=== PATIENT | female | born 1980 | race Caucasian/White ===

== ENCOUNTER → 2017-12-26 10:33 | Outpatient (CLI) | payer OTHER, SELFPAY ==
[2017-12-26 11:56] LABS: Estradiol 141.1 pg/mL
[2017-12-26 12:07] LABS: Hemoglobin A1c 5.5 % (4.2-6.3)
[2017-12-28 09:58] LABS: Progesterone Level 4.86 ng/mL (See Comment)
== END ==
PROVIDERS: Family Provider Family Medicine; PCP Family Medicine; Visit Provider Obstetrics & Gynecology
DX: N94.5 Secondary dysmenorrhea (principal); R53.82 Chronic fatigue, unspecified
CPT/HCPCS: 36415; 82670; 83036; 84144; 84403

== ENCOUNTER 2021-09-12 09:43 | Outpatient (CLI) | payer MEDICAID, SELFPAY ==
--- NOTE | 2021-09-12 09:48 | BI_ITS ---
MAMMOGRAPHY - BILATERAL SCREENING REASON FOR EXAM: Female, 41 years old. Routine annual screening examination. PERTINENT HISTORY: Non-contributory. TECHNIQUE: Digital bilateral breast carlos (3D mammographic acquisition) in the CC and MLO projections. 2-D mediolateral oblique (MLO) and craniocaudad (CC) views of both breasts were obtained. CAD: Full Field Digital Mammography with Computer Added Detection was performed. COMPARISON: None. Baseline examination. FINDINGS: Breast Composition: The breasts are heterogeneously dense, which may obscure small masses. There is a 1.8 cm x 2.3 cm irregular nodular density in the upper lateral aspect of the left breast. Correlation with ultrasound is recommended. No other significant abnormalities are identified. BI/SCRN MAMM (CAD)W/CARLOS BILAT IMPRESSION: 1.8 cm x 2.3 cm irregular nodular density in the upper lateral aspect of the left breast correlation with ultrasound is recommended. ASSESSMENT CATEGORY: BIRADS Category 0: Incomplete. Need additional imaging evaluation. A letter regarding these results will be sent to the patient by the facility within 30 days. Approximately 10% of breast cancers are not detected by mammography. A normal mammogram should not delay biopsy of a clinically suspicious abnormality. [id number] Electronically Signed: Franklin Cuadra MD at 11:05 EST , Service support ,
== END 2021-09-12 23:59 | disposition short-term general hospital (02) ==
LOC: OPBI 09:46
PROVIDERS: PCP Family Medicine; Visit Provider Family Medicine
DX: Z12.31 Encounter for screening mammogram for malignant neoplasm of breast (principal)
CPT/HCPCS: 77063; 77067

== ENCOUNTER 2021-09-16 15:28 | Outpatient (CLI) | payer MEDICAID, SELFPAY ==
--- NOTE | 2021-09-16 15:30 | US_ITS ---
STUDY: ULTRASOUND BREAST - LEFT REASON FOR EXAM: Female, 41 years old. Abnormal screening mammogram. TECHNIQUE: Axial and longitudinal images of the LEFT breast were performed with a high resolution ultrasound transducer. # OF IMAGES: 49 COMPARISON: Comparison is made with prior mammogram dated 09/12/2021. FINDINGS: LEFT Breast: The lateral half of the left breast was examined by ultrasound. No sonographic abnormality is seen. The patient will be recalled for additional views of the left breast including compression spot views. US/Breast Limited Unilateral IMPRESSION: Unremarkable sonographic evaluation of the lateral aspect of the left breast. The patient will be recalled for additional images of the left breast including compression spot views. ASSESSMENT CATEGORY: BIRADS Category 0: Incomplete. Need additional imaging evaluation. A letter regarding these results will be sent to the patient by the facility within 30 days. Electronically Signed: Franklin Cuadra MD at 8:34 EST , Service support ,
== END 2021-09-16 23:59 | disposition short-term general hospital (02) ==
LOC: OPUS 15:29
PROVIDERS: PCP Family Medicine; Referring Provider Family Medicine; Visit Provider Family Medicine
DX: N63.20 Unspecified lump in the left breast, unspecified quadrant (principal)
CPT/HCPCS: 76642

== ENCOUNTER 2021-09-24 09:05 | Outpatient (CLI) | payer MEDICAID, SELFPAY ==
--- NOTE | 2021-09-24 09:09 | BI_ITS ---
MAMMOGRAPHY - UNILATERAL DIAGNOSTIC: LEFT BREAST REASON FOR EXAM: Female, 41 years old. Abnormal screening mammogram. PERTINENT HISTORY: Non-contributory. TECHNIQUE: Compression spot views as well as 90 degree lateral and 3-D compression spot views of the left breast were obtained. CAD: Full Field Digital Mammography with Computer Added Detection was performed. COMPARISON: Comparison is made with prior mammogram dated 09/12/2021. FINDINGS: Breast Composition: The breasts are heterogeneously dense, which may obscure small masses. There are no dominant masses or suspicious calcifications. No other significant abnormalities are identified. BI/DIAG MAMM W/CAD, UNILAT IMPRESSION: Stable unilateral diagnostic mammogram. One year follow-up mammogram recommended. (A) ASSESSMENT CATEGORY: BIRADS Category 1: Negative. A letter regarding these results will be sent to the patient by the facility within 30 days. Approximately 10% of breast cancers are not detected by mammography. A normal mammogram should not delay biopsy of a clinically suspicious abnormality. Electronically Signed: Franklin Cuadra MD at 10:12 EST , Service support ,
== END 2021-09-24 23:59 | disposition short-term general hospital (02) ==
LOC: OPBI 09:06
PROVIDERS: PCP Family Medicine; Referring Provider Family Medicine; Visit Provider Family Medicine
DX: R92.8 Other abnormal and inconclusive findings on diagnostic imaging of breast (principal)
CPT/HCPCS: 77061; 77065; G0279

== ENCOUNTER 2021-12-05 18:57 | Observation (INO) | payer MEDICAID, SELFPAY ==
[2021-12-05] VITALS (7 sets, daily range): BP systolic 117–122; BP diastolic 70–81; PULSE 58–73; RESP 16–18; TEMP 36.6–36.8; O2SAT 81–96; BMI 35.4; BMI 35.2
--- NOTE | 2021-12-05 19:13 | EDS_ITS ---
HPI <JOSE Ortiz - Last Filed: 12/05/21 21:51> History of Present Illness Chief Complaint: Back Narrative Narrative: 41-year-old female with history of fibromyalgia, anxiety, depression presents to the emergency department with severe spine pain. Patient states that she has been having back pain has been going on for 2 to 3 weeks, she did see her primary care physician yesterday given Neurontin, prednisone however this is not helping. Patient states the pain is going all the way up her spine down her legs. Patient does arrive by EMS. Patient denies any bowel or bladder incontinence, fever chills, IV drug use. Patient is moving all extremities however it hurts to move her legs as well as to do any rolling or walking. [facility] <JOSE Ortiz - Last Filed: 12/05/21 21:51> [facility] Medical History (Updated 12/05/21 @ 21:40 by JOSE Ortiz) Back pain Fibromyalgia Allergy/AdvReac Type Severity Reaction Status Date / Time acetaminophen [From Vicodin] Allergy PT UNSURE Verified 12/05/21 19:01 OF REACTION hydrocodone [From Vicodin] Allergy PT UNSURE Verified 12/05/21 19:01 OF REACTION loratadine [From Claritin-D] Allergy PT UNSURE Verified 12/05/21 19:01 OF REACTION pseudoephedrine Allergy PT UNSURE Verified 12/05/21 19:01 [From Claritin-D] OF REACTION Social History Smoking Status: Never smoker ROS <JOSE Ortiz - Last Filed: 12/05/21 21:51> ROS ED ROS Narrative Constitutional: Negative for fever, chills, weight loss or gain, weakness Eyes: Negative for vision loss, vision change, double vision ENT: Negative for any hearing changes, ringing in the ears, discharge, pain Nose: Negative for any congestion, runny nose, sinus pain, allergies Throat: Negative for any sore throat, swelling, voice changes, Cardiovascular: Negative for any chest pain, tightness, palpitations, racing heartbeat Respiratory: Negative for any cough, sputum production, hemoptysis, shortness of breath, shortness of breath on exertion, Gastrointestinal: Negative for any abdominal pain, nausea, vomiting, diarrhea, constipation, blood in stool, blood in vomit : Negative for any urinary frequency, incontinence, dysuria, retention, blood in urine Muscle skeletal: Negative for any muscle joint pain arthralgias. Positive for severe back pain that goes down bilateral legs the pain goes up to her neck Neurological: Negative for any headache, dizziness, syncope, numbness or tingling Skin: Negative for any rashes, lumps, itching, abrasions, lacerations Psychiatric: Negative for any depression, anxiety, stress, suicidal ideation, homicidal ideation Hematologic: Negative for any easy bruising, excessive bruising, easy bleeding Allergies: Negative for any eczema, hives, rash EXAM <JOSE Ortiz - Last Filed: 12/05/21 21:51> Physical Exam Narrative Exam Narrative: Patient arrives in moderate amount of pain, patient is screaming with any movement. Const Vital Signs: 12/05/21 18:58 12/05/21 19:17 12/05/21 19:50 Temperature 97.8 F Temperature Source Temporal Pulse Rate 61 58 L Respiratory Rate 18 18 Blood Pressure 118/81 H 121/79 H Blood Pressure Mean 93 93 Pulse Ox 96 93 81 Oxygen Delivery Method Room Air Room Air Room Air Oxygen Flow Rate (L/min) 12/05/21 19:51 12/05/21 21:22 Temperature Temperature Source Pulse Rate 58 L Respiratory Rate 18 Blood Pressure 118/80 Blood Pressure Mean 92 Pulse Ox 95 96 Oxygen Delivery Method Nasal Cannula Nasal Cannula Oxygen Flow Rate (L/min) 2 2 Positive well nourished and well developed General Appearance ED: well developed Eyes PERRL and EOMs intact bilaterally Neck no lymphadenopathy and supple Chest Wall inspection of chest normal and palpation of chest normal Resp normal respiratory effort and clear to auscultation bilaterally Cardio regular rate and regular rhythm GI normal to inspection, nondistended, normoactive bowel sounds, non-tender and non-distended Palpation: soft Back/Spine Back/Spine Narrative: Patient has pain throughout the spinal exam. Patient had pain on palpation to both legs. Patient has +2 pedal pulse. Cervical Spine: cervical spine tenderness Thoracic Spine / Upper Back: thoracic spinal tenderness Lumbar Spine / Lower Back: lumbar spinal tenderness Extremity Extremity Narrative: Patient has tenderness to the bilateral lower extremities, anywhere I would touch on the lower extremity she did have pain General Extremety ED: Yes tenderness Neuro oriented x3 and CN's II-XII intact bilaterally Sensorium / Orientation: alert Motor Exam: strength 5/5 throughout Psych Mood & Affect: anxious Skin no rashes or lesions noted <Dr. Vj Alexis DO - Last Filed: 12/05/21 22:22> Physical Exam Const Vital Signs: 12/05/21 18:58 12/05/21 19:17 12/05/21 19:50 Temperature 97.8 F Temperature Source Temporal Pulse Rate 61 58 L Respiratory Rate 18 18 Blood Pressure 118/81 H 121/79 H Blood Pressure Mean 93 93 Pulse Ox 96 93 81 Oxygen Delivery Method Room Air Room Air Room Air Oxygen Flow Rate (L/min) 12/05/21 19:51 12/05/21 21:22 Temperature Temperature Source Pulse Rate 58 L Respiratory Rate 18 Blood Pressure 118/80 Blood Pressure Mean 92 Pulse Ox 95 96 Oxygen Delivery Method Nasal Cannula Nasal Cannula Oxygen Flow Rate (L/min) 2 2 MDM <JOSE Ortiz - Last Filed: 12/05/21 21:51> [facility] MDM Narrative Medical decision making narrative: Patient arrives in mild to moderate distress secondary to back pain. Patient presents the emerge department for worsening back pain that has been ongoing for greater than 2 weeks however much worse last 48 hours. Patient did receive x-rays of the lumbosacral spine, these were unremarkable. Patient did receive IV Toradol in the squad, IV Dilaudid here with Zofran and IV fluids. Patient states that did help with the back pain slightly. Patient was assisted to sit up, stand, however due to the pain she was screaming, saying that she could not do it and sat back down. Patient will be remedicated with IV pain medicine, Dilaudid 0.5 mg. On reassessment, the patient was again try to ambulate, patient immediately started crying when sitting up, patient was able to take 1 step off the bed, states that she could not hold her own weight and says she cannot walk and sat back in bed. At this time, due to the patient's inability to ambulate, ongoing back pain after 2 doses of Dilaudid, the patient will need to be admitted to the hospital for intractable back pain. Radiography Diagnostic Testing: Clinical Impression(s) from Imaging Studies Lumbar Spine X-Ray 12/05/21 19:25 IMPRESSION: There are no acute findings. Electronically Signed: Holland Perez MD at 19:52 EDT , <Dr. Vj Alexis, DO - Last Filed: 12/05/21 22:22> [facility] MDM Narrative Medical decision making narrative: Patient seen in conjunction with the nurse practitioner. Agree with assessment and plan. Patient presenting with back pain. No direct trauma. No red flag signs or symptoms. No signs of cauda equina syndrome. Patient medicated with Toradol prior to arrival. She is given 2 doses of Dilaudid in the emergency room. X-rays of the lumbar spine on my interpretation show no acute abnormalities. We did tempted to intimately the patient 2 times and she is not able to take more than one step. She does not think she can go home and take care of herself. Discussed with the hospitalist for admission. Impression: 1. Intractable back pain 2. Inability ambulate Lab Data Attestation: I reviewed the patient's lab results. Radiography Diagnostic Testing: Clinical Impression(s) from Imaging Studies Lumbar Spine X-Ray 12/05/21 19:25 IMPRESSION: There are no acute findings. Electronically Signed: Holland Perez MD at 19:52 EDT , Discharge Plan Dx/Rx/DC Orders Clinical Impression: Intractable back pain Disposition Disposition: Acute Care [facility]
[2021-12-05] MEDS: Ondansetron 4 MG/2 ML Vial IV (19:15)
[2021-12-05] MEDS: HYDROmorphone 1 MG/ML Syringe IV (19:15)
[2021-12-05] MEDS: 0.9% Normal Saline 1,000 ML 1000 ML IV (19:15)
--- NOTE | 2021-12-05 19:25 | RAD_ITS ---
STUDY: X-RAY - LUMBAR SPINE REASON FOR EXAM: Female, 41 years old. LOW BACK PAIN lumbar pain TECHNIQUE: XR Spine Lumbar 2 or 3 Views COMPARISON: None FINDINGS: Normal lumbar lordosis. There is no substantial scoliosis. There is a normal alignment of the vertebrae. Normal vertebral bodies and endplates. Normal disc space heights. The soft tissue structures are unremarkable. RAD/Lumbar Spine 2 or 3 Views IMPRESSION: There are no acute findings. Electronically Signed: Holland Perez MD at 19:52 EDT ,
[2021-12-05] MEDS: HYDROmorphone 0.5 MG/0.5 ML SYRINGE IV (20:57)
--- NOTE | 2021-12-05 22:15 | HP.PCM.HOS_ITS ---
[facility] - General General Date of Admission: 12/05/21 HPI Narrative December, is a 41 F with a significant history of depression, anxiety and fibromyalgia who presents to the emergency department with a 2-week history of lower back pain. The pain started gradually. However a day before presentation she rolled over, heard a popping sound and developed excruciating back pain. Also, she associates her pain with falling on ice. The pain radiates to entire lower extremity and into her entire spine, neck and into her shoulders. Standing, sitting, and walking aggravates the pain. She tried some heating pad and pain on treatment without any real relief. She denies any aggravating fac tors to the pain. She described the pain as sharp. She denies bowel and bladder incontinence. The day before presentation she saw her PCP and she was started on prednisone taper. Reportedly attempt was made for patient to walk at the emergency department but she had excruciating pain preventing her from walking. [facility] Medical History Anxiety Back pain Depression Fibromyalgia Home Medications cyclobenzaprine 10 mg PO TID PRN 12/05/21 [History Last Taken 12/04/21] duloxetine [Cymbalta] 30 mg PO DAILY 12/05/21 [History Last Taken 12/05/21] fluoxetine [Prozac] 20 mg PO DAILY 12/05/21 [History Last Taken 12/05/21] gabapentin 300 mg PO TID PRN 12/05/21 [History Last Taken 12/05/21] meloxicam 7.5 mg PO BID 12/05/21 [History Last Taken 12/05/21] prednisone 20 mg PO BID 12/05/21 [History Last Taken 12/05/21] trazodone 50 mg PO QHS 12/05/21 [History Last Taken 12/04/21] Allergy/AdvReac Type Severity Reaction Status Date / Time acetaminophen [From Vicodin] Allergy PT UNSURE Verified 12/05/21 19:01 OF REACTION hydrocodone [From Vicodin] Allergy PT UNSURE Verified 12/05/21 19:01 OF REACTION loratadine [From Claritin-D] Allergy PT UNSURE Verified 12/05/21 19:01 OF REACTION pseudoephedrine Allergy PT UNSURE Verified 12/05/21 19:01 [From Claritin-D] OF REACTION Family History Other Arthritis Fibromyalgia Heart disease Surgical History Hx of appendectomy Social History Smoking Status: Never smoker ROS ROS Narrative Pertinent positives and pertinent negatives as noted in HPI. All other systems were reviewed and are negative. Vital Signs Vital Signs Vital Signs: 12/05/21 18:58 12/05/21 19:17 12/05/21 19:50 Temperature 97.8 F Temperature Source Temporal Pulse Rate 61 58 L Respiratory Rate 18 18 Blood Pressure 118/81 H 121/79 H Blood Pressure Mean 93 93 Pulse Ox 96 93 81 Oxygen Delivery Method Room Air Room Air Room Air Oxygen Flow Rate (L/min) 12/05/21 19:51 12/05/21 21:22 Temperature Temperature Source Pulse Rate 58 L Respiratory Rate 18 Blood Pressure 118/80 Blood Pressure Mean 92 Pulse Ox 95 96 Oxygen Delivery Method Nasal Cannula Nasal Cannula Oxygen Flow Rate (L/min) 2 2 Weight Weight: 90.718 kg Body Mass Index (BMI) 35.4 Physical Exam Narrative Physical exam: General: Well-nourished, well-developed. Head: Normocephalic, atraumatic, no tenderness Eyes: Vision is grossly intact. EOMI ENT, no trauma, moist mucous membranes, no rhinorrhea Neck: Nontender, full range of motion, no spinal tenderness, deformities, step- off CVS: Regular rate and rhythm. S1-S2 present. No murmur, gallop or rub. Respiratory : clear to auscultation bilaterally, chest wall nontender, no wheezi ng Abdomen: Soft, nontender, nondistended, normal bowel sounds, no masses : Deferred Back: Nontender, no CVA tenderness, no midline spinal tenderness, deformities, step-offs Extremities: Tenderness to back at multiple areas including spinous and paraspinal areas. Screams with straight leg raise test bilaterally. Skin: Normal color, no trauma, abrasions Neuro: Alert, oriented, cranial nerves II through XII grossly intact. Psychiatry: Normal mood. Normal affect. Not depressed. Not anxious. Results Radiology Impression Lumbar Spine X-Ray 12/05/21 19:25 IMPRESSION: There are no acute findings. Electronically Signed: Holland Perez MD at 19:52 EDT , Assessment & Plan Assessment/Plan (1) Intractable back pain: PLAN: Intractable low back pain Lumbar spine x-ray was visualized and independently interpreted and agree with radiologist impression of no acute finding. We will continue patient gabapentin and cyclobenzaprine as needed. Prednisone continued. We will start patient on oxycodone. Meloxicam continued. PT and OT to work with patient. DVT prophylaxis: SCD ordered. Charges/Coding Visit Charges OBSV E&M: 22135 Initial observation care L2
[2021-12-05] MEDS: oxyCODONE 5 MG Tablet 10 MG PO (23:19)
[2021-12-05] MEDS: predniSONE 20 MG Tablet PO (23:19)
[2021-12-05] MEDS: cycloBENZAPRine HCl 10 MG Tablet PO (23:19)
[2021-12-06] MEDS: Gabapentin 300 MG Capsule PO ×2 (02:39→10:33)
[2021-12-06] MEDS: oxyCODONE 5 MG Tablet 10 MG PO ×3 (03:21→13:11)
[2021-12-06 03:31] VITALS: BP 113/76; PULSE 61; RESP 16; TEMP 36.6; O2SAT 96
[2021-12-06 06:11] LABS: Absolute Lymphocyte Count 0.93 X10^3/uL (0.83-4.51); Absolute Neutrophil Count 5.1 X10^3/uL (2.0-7.7); Basophil# 0.01 X10^3/uL; Basophil% 0.2 % (0-1); Hematocrit 38.6 % (37-47); Hemoglobin 12.9 g/dL (12.0-15.0); Lymphocyte # 0.93 X10^3/ul (0.83-4.51); Lymphocyte % 14.9 % (19-41); Mean Corp Hgb Conc 33.4 g/dL (32-36); Mean Corpuscular Hgb 29.1 pg (27.0-32.0); Mean Corpuscular Volume 87.1 fL (81-99); Monocyte# 0.22 X10^3/uL; Monocyte% 3.5 % (0-10); NRBC Flagged by Analyzer 0 % (0-5); Neutrophil # 5.08 X10^3/uL (2.7-7.7); Neutrophil % 81.2 % (47-70); Platelet Count 216 K/mm3 (150-450); RBC Distribution Width CV 12.5 % (11.6-14.6); RBC Distribution Width SD 40.4 fl (35.1-43.9); Red Blood Count 4.43 M/mm3 (4.2-5.4); White Blood Count 6.3 K/mm3 (4.4-11.0)
[2021-12-06 06:31] LABS: Anion Gap 4 (5-15); BUN 16 mg/dL (7-18); BUN/Creat Ratio 19.2 RATIO (10-20); Calcium,Total 8.2 mg/dL (8.5-10.1); Chloride 110 mmol/L (98-107); Creatinine, Serum 0.84 mg/dL (0.55-1.02); EST Glomerular Filtration Rate 80 mL/min (>60); Est Glom Filt Rate - Afr Amer 96 mL/min (>60); Estimated Creatinine Clearance 72.91 ml/min; Glucose 114 mg/dL (74-106); Potassium 4.2 mmol/L (3.5-5.1); Sodium Level 139 mmol/L (136-145)
[2021-12-06 07:25] VITALS: O2SAT 94
[2021-12-06 08:17] VITALS: BP 107/61; PULSE 70; RESP 18; TEMP 35.9; O2SAT 97
[2021-12-06] MEDS: Meloxicam 7.5 MG Tablet PO (08:20)
[2021-12-06] MEDS: DULoxetine Hcl 30 MG Capsule PO (08:20)
[2021-12-06] MEDS: cycloBENZAPRine HCl 10 MG Tablet PO (08:20)
[2021-12-06] MEDS: predniSONE 20 MG Tablet PO ×2 (08:20→17:04)
[2021-12-06] MEDS: Enoxaparin 40 MG/0.4 ML Syringe SC (08:21)
[2021-12-06] MEDS: FLUoxetine 20 MG Capsule PO (08:21)
--- NOTE | 2021-12-06 12:13 | PN.HOSP_ITS ---
Subjective Subjective still with back pain. pain radiates down both legs laterally to knees. denies saddle anesthesia, bowel or bladder incontinence. Never had this before. Started when she turned around in bed then heard a pop. Objective Data Objective Data Vital Signs: Vital Signs Temp Pulse Resp BP Pulse Ox 35.9 C L 70 18 107/61 97 12/06/21 08:17 12/06/21 08:17 12/06/21 08:17 12/06/21 08:17 12/06/21 08:17 Oxygen Flow Rate (L/min) 2 Oxygen Delivery Method Room Air Weight: 90.2 kg Body Mass Index (BMI) 35.2 Intake & Output: Intake and Output for Last 24 Hours 12/04/21 12/05/21 12/06/21 23:59 23:59 23:59 Intake Total 1000 / 1000 200 / 200 Output Total 250 / 250 Balance 1000 / 1000 -50 / -50 Lab / Micro Data Result Diagrams: 12/06/21 05:36 12/06/21 05:36 Labs: Laboratory Results - last 24 hr 12/06/21 05:36: WBC 6.3, RBC 4.43, Hgb 12.9, Hct 38.6, MCV 87.1, MCH 29.1, MCHC 33.4, RDW Std Deviation 40.4, RDW Coeff of Danna 12.5, Plt Count 216, MPV 11.0, Immature Gran % (Auto) 0.200, Neut % (Auto) 81.2 H, Lymph % (Auto) 14.9 L, Cobb % (Auto) 3.5, Eos % (Auto) 0.0, Baso % (Auto) 0.2, Absolute Neuts (auto) 5.1, Absolute Lymphs (auto) 0.93, Nucleated RBC % 0 12/06/21 05:36: Sodium 139, Potassium 4.2, Chloride 110 H, Carbon Dioxide 25.0, Anion Gap 4 L, BUN 16, Creatinine 0.84, Estim Creat Clear Calc 72.91, Est GFR (MDRD) Af Amer 96, Est GFR (MDRD) Non-Af 80, BUN/Creatinine Ratio 19.2, Glucose 114 H, Calcium 8.2 L Radiography Diagnostic Testing: Radiology Impression Lumbar Spine X-Ray 12/05/21 19:25 IMPRESSION: There are no acute findings. Electronically Signed: Holland Perez MD at 19:52 EDT , Physical Exam Const alert and no apparent distress HEENT head/scalp atraumatic Head and Scalp: normocephalic Extremity normal to inspection and no clubbing, cyanosis or edema Skin no rashes or lesions noted and no wounds Neuro Neuro Narrative: MS 5/5 in LE Sensorium / Orientation: awake and alert Assessment & Plan Assessment/Plan (1) Intractable back pain: PLAN: 1. acute back pain * intractable * reviewed Lumbar xray--no fracture * no red flags for cauda equina * suspect disc herniation * check MRI * optimize pain medication. * suspect pt may require a lot of reassurance and encouragment. Charges/Coding Visit Charges OBSV E&M: 34849 Subsequent observation care L2
[2021-12-06 13:09] VITALS: BP 107/61; PULSE 67; RESP 18; TEMP 36.6; O2SAT 98
--- NOTE | 2021-12-06 14:20 | MRI_ITS ---
STUDY: MRI LUMBAR SPINE WITHOUT CONTRAST REASON FOR EXAM: Female, 41 years old. SHARP PAIN IN BACK WITH BILATERAL HIP AND LEG PAIN X 2 DAYS XR ;-SPINE DONE 12/05/21 MRI L-SPINE DONE 04/14/10 ALSO SENT TO COMPARE TECHNIQUE: Standardized fat and water weighted pulse sequences were obtained in the sagittal and axial planes. COMPARISON: MRI of the lumbar spine dated April. Lumbar spine x-ray dated December 05, 2021 FINDINGS: T12-L1: Normal endplates. Normal disc height, hydration and morphology. Normal bilateral facet joints. Normal central canal and bilateral lateral recesses. Normal bilateral intervertebral neural foramina. No marrow edema or fracture or compression deformity is present. Normal lumbar lordosis. There is a levoscoliosis of the lumbar spine. Normal conus medullaris that terminates at the T12-L1 level. L1-2: Normal endplates. Normal disc height, hydration and morphology. Normal bilateral facet joints. Normal central canal and bilateral lateral recesses. Normal bilateral intervertebral neural foramina. L2-3: Normal endplates. Minimal disc desiccation. Normal disc height and morphology. Normal bilateral facet joints. Normal central canal and bilateral lateral recesses. Normal bilateral intervertebral neural foramina. L3-4: Normal endplates. Diffuse disc desiccation. Normal disc height and morphology. Mild facet joint and ligament of flava hypertrophy. Normal central canal and bilateral lateral recesses. Normal bilateral intervertebral neural foramina. L4-5: Normal endplates. Retrolisthesis of L4 and L5 of 2 to 3 mm. Diffuse disc desiccation. Normal disc space height and morphology. Normal bilateral facet joints. Normal central canal and bilateral lateral recesses. Normal bilateral intervertebral neural foramina. L5-S1: Normal endplates. Mild to moderate disc space narrowing with annular bulging. Retrolisthesis of L5 on S1 of 2 to 3 mm.. Normal bilateral facet joints. Normal central canal and bilateral lateral recesses. Normal bilateral intervertebral neural foramina. Normal visualized sacral ala. Normal visualized paraspinous soft tissue structures. MRI/Spine Lumbar (Routine) IMPRESSION: 1. Mild multilevel degenerative changes, as described above. 2. No central canal stenosis or foraminal stenosis or nerve root compression Electronically Signed: Chon Enrique MD at 15:43 EDT ,
--- NOTE | 2021-12-06 15:46 | CASEMGMT ---
OSIEL PALOMO Assessment: Face to Face with pt for initial transition planning/care coordination assessment. OSIEL PALOMO introduced self and role at [facility], pt voices understanding and consents to assessment. Pt is A/O x4 and answers all questions appropriately at this time. Pt lying in bed in no distress. Care providers, pharmacy, and demographics verified/updated. Admitting Dx: intractable back pain PCP:[facility] Specialists:Pt denies. Preferred Pharmacy: [facility] Insurance: [place] [employer] Prescription Benefit: yes LW/HPOA: Pt denies having a LW/DPOA and denies need for info regarding AD. LNOK: Sheridan Encinas, mother Living Arrangements: Pt lives with mother and father in a two story house with 1 step to enter without a rail. Pt reports being I in ADL's prior to hospitalization. Transportation: Pt drives self and denies concerns with transportation. DME/HHC/SNF: Pt denies having any DME, previous HHC or SNF stays. Pt states no concerns with going home at time of dc. Pt states she would be agreeable to outpt therapy if recommended. Pt states no further concerns/needs. CM to follow. Advised pt to ask CM if any further question/concerns/needs arise, voices understanding. Pt Goal: Home Plan: Home, follow for need of AD and therapy.
[2021-12-06 17:18] VITALS: BP 100/60; PULSE 63; RESP 16; TEMP 36.6; O2SAT 94
[2021-12-06] MEDS: 0.9% Saline Lock 10 ML Syringe IV ×2 (17:49→21:53)
[2021-12-06] MEDS: Ketorolac 30 MG/ML Syringe IV (17:49)
[2021-12-06 21:50] VITALS: BP 113/70; PULSE 63; RESP 18; TEMP 36.7; O2SAT 94
[2021-12-06] MEDS: traZODone 50 MG Tablet PO (21:50)
[2021-12-06] MEDS: Docusate Sodium 100 MG Capsule PO (21:50)
[2021-12-06] MEDS: cycloBENZAPRine HCl 5 MG TABLET PO (21:51)
[2021-12-07 00:04] VITALS: BP 105/72; PULSE 60; RESP 16; TEMP 36.8; O2SAT 93
--- NOTE | 2021-12-07 06:16 | NURSING ---
Asked for pain meds. When RN came to room to check on patient she was snoring and sleeping.
[2021-12-07 06:23] VITALS: BP 106/83; PULSE 56; RESP 18; TEMP 36.7; O2SAT 96
[2021-12-07] MEDS: Ketorolac 30 MG/ML Syringe IV ×3 (06:24→11:55)
[2021-12-07] MEDS: cycloBENZAPRine HCl 5 MG TABLET PO ×2 (06:24→13:55)
[2021-12-07] MEDS: 0.9% Saline Lock 10 ML Syringe IV ×2 (06:25)
[2021-12-07 07:13] VITALS: O2SAT 93
[2021-12-07] MEDS: Enoxaparin 40 MG/0.4 ML Syringe SC (08:21)
[2021-12-07] MEDS: Docusate Sodium 100 MG Capsule PO (08:21)
[2021-12-07] MEDS: predniSONE 20 MG Tablet PO (08:21)
[2021-12-07] MEDS: FLUoxetine 20 MG Capsule PO (08:21)
[2021-12-07] MEDS: DULoxetine Hcl 30 MG Capsule PO (08:21)
[2021-12-07 09:28] VITALS: BP 114/81; PULSE 58; RESP 16; TEMP 36.6; O2SAT 99
--- NOTE | 2021-12-07 10:09 | CASEMGMT ---
Addendum entered by Lanie Knight 12/07/21 13:54: Looked on [employer] website for outpt therapy in [place], made pt aware this RNCM did not see any companies but [employer] was in network. Pt states that [employer] is just as easy for her to go to. Denies further homegoing needs. Addendum entered by Lanie Knight 12/07/21 11:21: Script on chart for OP PT as additional therapy recommended. Original Note: Green sheet on chart for [facility].
[2021-12-07 13:25] VITALS: BP 119/79; PULSE 88; RESP 16; TEMP 36.6; O2SAT 96
--- NOTE | 2021-12-07 13:30 | PCM.DC ---
Discharge Instructions Diet Discharge Diet: No restrictions Activity Discharge Activity: Return to Normal Activity and Use Walker Return to work on:: 12/11/21 Follow Up Care Please Follow Up With: physical therapy When: 1 week Test Results: Test results from this visit will be discussed in further detail at your follow-up appointment, if applicable. Discharge Plan Admission Admit Date/Time: 12/05/21 22:19 Primary Reason for Your Visit: back pain Attending Provider: Costa Raymond Primary Care Provider: Shanta Villalpando Discharge Orders/Prescriptions Prescriptions: New acetaminophen 500 mg tablet 1,000 mg PO Q8H PRN PRN (Reason: fever or pain) Qty: 20 RF: 0 ibuprofen 200 mg capsule 800 mg PO Q8H PRN (Reason: fever or pain) Qty: 20 RF: 0 omeprazole 20 mg tablet,delayed release (DR/EC) 20 mg PO DAILY Qty: 7 RF: 0 Continued trazodone 50 mg Tablet 50 mg PO QHS RF: 0 fluoxetine [Prozac] 20 mg Capsule 20 mg PO DAILY RF: 0 duloxetine [Cymbalta] 30 mg Capsule,Delayed Release(Dr/Ec) 30 mg PO DAILY RF: 0 gabapentin 300 mg Tablet 300 mg PO TID PRN (Reason: PAIN) RF: 0 cyclobenzaprine 10 mg Tablet 10 mg PO TID PRN (Reason: Muscle Spasm) Qty: 10 RF: 0 Discontinued prednisone 20 mg Tablet 20 mg PO BID RF: 0 meloxicam 7.5 mg Tablet 7.5 mg PO BID RF: 0 Referrals / Follow Up: Shanta Villalpando MD [Primary Care Provider] - Disposition Disposition (needs filled in before D/C Order can be placed): Home, Self Care
--- NOTE | 2021-12-07 13:36 | DS.PCM_ITS ---
Providers Date of Admission: 12/05/21 Primary Care Physician: Dr. Shanta Villalpando MD Reason For Visit: INTRACTABLE BACK PAIN Diagnosis Discharge Diagnosis (1) Intractable back pain: Status: Acute Code(s): M54.9 - Dorsalgia, unspecified Medications at Discharge Home Medications duloxetine [Cymbalta] 30 mg PO DAILY 12/05/21 fluoxetine [Prozac] 20 mg PO DAILY 12/05/21 gabapentin 300 mg PO TID PRN 12/05/21 trazodone 50 mg PO QHS 12/05/21 acetaminophen 1,000 mg PO Q8H PRN PRN #20 tab 12/07/21 cyclobenzaprine 10 mg PO TID PRN #10 tab 12/07/21 ibuprofen 800 mg PO Q8H PRN #20 cap 12/07/21 omeprazole 20 mg PO DAILY #7 tab 12/07/21 Hospital Course Operations None Procedures None Summary of Care Provided Minutes Spent on Discharge: 32 Hospital Course: Is a 41-year-old white female presents with severe back pain after twisting behind her to do check something in her bed. Patient complained of pain down her back and into her legs. Inquiry into her back pain patient state that she has had pain going down her legs bilaterally into the knees. Denied any saddle anesthesia nor any bowel or bladder incontinence. Patient did have an MRI that did not show any cord or nerve root impingement. Explained to patient that her symptoms did not coincide with her MRI findings. On exam, patient did have a reproducible paraspinal muscle tenderness. Patient was on cyclobenzaprine for muscle spasms as well as NSAIDs. Patient had been on narcotics but discontinue those while she is here. Today, the patient is feeling better. I have concerned that there may be some embellishment of her symptoms for unclear reasons. Patient will be discharged home with walker and follow-up with physical therapy. Patient will receive prescription for cyclob enzaprine. Patient can take 800 mg of ibuprofen 3 times a day as needed as well as 1000 mg of acetaminophen 3 times daily as needed. While patient is on high- dose ibuprofen she will be advised to take an omeprazole. Physical Exam Const alert and no apparent distress Extremity Extremity Narrative: Bilateral paraspinal muscle tenderness. No point tenderness. Skin no rashes or lesions noted Neuro Sensorium / Orientation: awake Weight / BMI Weight Weight: 90.2 kg Body Mass Index (BMI) 35.2 ABG / Lab / Microbiology Data Result Diagrams: 12/06/21 05:36 12/06/21 05:36 Radiography Diagnostic Testing: Radiology Impression Lumbar Spine MRI 12/06/21 14:20 IMPRESSION: 1. Mild multilevel degenerative changes, as described above. 2. No central canal stenosis or foraminal stenosis or nerve root compression Electronically Signed: Chon Enrique MD at 15:43 EDT Reading Location ID and State: [facility] / [place] , Service support , D/C Instructions Discharge Diet: No restrictions Return to work on: 12/11/21 Please Follow Up With: physical therapy When: 1 week Meaningful Use Info Meaningful Use Diagnoses (Choose all that apply): None applicable Discharge Plan Admission Admit Date/Time: 12/05/21 22:19 Primary Reason for Your Visit: back pain Attending Provider: Costa Raymond Primary Care Provider: Shanta Villalpando Discharge Orders/Prescriptions Prescriptions: New acetaminophen 500 mg tablet 1,000 mg PO Q8H PRN PRN (Reason: fever or pain) Qty: 20 RF: 0 ibuprofen 200 mg capsule 800 mg PO Q8H PRN (Reason: fever or pain) Qty: 20 RF: 0 omeprazole 20 mg tablet,delayed release (DR/EC) 20 mg PO DAILY Qty: 7 RF: 0 Continued trazodone 50 mg Tablet 50 mg PO QHS RF: 0 fluoxetine [Prozac] 20 mg Capsule 20 mg PO DAILY RF: 0 duloxetine [Cymbalta] 30 mg Capsule,Delayed Release(Dr/Ec) 30 mg PO DAILY RF: 0 gabapentin 300 mg Tablet 300 mg PO TID PRN (Reason: PAIN) RF: 0 cyclobenzaprine 10 mg Tablet 10 mg PO TID PRN (Reason: Muscle Spasm) Qty: 10 RF: 0 Discontinued prednisone 20 mg Tablet 20 mg PO BID RF: 0 meloxicam 7.5 mg Tablet 7.5 mg PO BID RF: 0 Referrals / Follow Up: Shanta Villalpando MD [Primary Care Provider] - Disposition Disposition (needs filled in before D/C Order can be placed): Home, Self Care Charges/Coding Visit Charges OBSV E&M: 67289 Observation care discharge
== END 2021-12-07 14:15 | disposition home or self-care (01) ==
LOC: ED 21:40 → MS3 22:30
PROVIDERS: Admitting Provider Hospitalist; Emergency Provider Student in an Organized Health Care Education/Training Program; PCP Family Medicine
DX: M54.9 Dorsalgia, unspecified (principal); M79.661 Pain in right lower leg; M79.7 Fibromyalgia; F41.9 Anxiety disorder, unspecified; M79.662 Pain in left lower leg; M62.838 Other muscle spasm; R26.2 Difficulty in walking, not elsewhere classified; Z79.899 Other long term (current) drug therapy; F32.A Depression, unspecified
CPT/HCPCS: 36415; 72100; 72148; 80048; 85025; 96372; 96374; 96375; 96376; 97110; 97162; 97165; 97530; 99218; 99285; A4216; G0378; J2405

== ENCOUNTER 2022-02-06 12:00 | Outpatient (RCR) | payer MEDICAID, SELFPAY ==
--- NOTE | 2021-12-19 10:53 | HP.PTEVAL_ITS ---
Patient's Visit Information AMNA RAMIREZ is a 41 year old F referred to Physical Therapy by Dr. Costa Raymond DO with a diagnosis of ITTRACTABLE LOW BACK PAIN. Date of Evaluation: 12/19/21 Physical Therapist: Prosper Wagoner, PT, Cert MDT, OCS - Visit Plan Frequency: 2x /Week Duration: 4 Weeks Plan: PATIENT IS HIGHLY IRRITABLE. PT INTERVETIONS GRADED DLS ,POSTURAL EX'S ,LUMBAR ROM ,FLEXSBILITY ACTIVITY MODIFICATION ,POSTURE /BODY MECHANICS, AND MODALTIES FOR PAIN RELEIVE - Subjective This 41 y/o female presents to physical therapy with intractable low back pain. Approximately ~2 weeks, Patient in bed twisted to get phone ,seen DR then next day pain worse . Patient next day reports pain worsen thus family called ER via ambulance then admitted to hospital . Patient had MRI showed 2-3 mm retrolisthesis ,buldging discs . Patient was in hospital for 2 days. Patient d/c to home with fww, flexural ,gabapentin. Patient takes other MEDS for anxiety/depression and fibromyalgia. Initially, pain entire spine to Lumbar bilateral legs lateral hips to ankle. Currently, pain today pain spine and lumbar radiates left buttock to knee. Aggravating bending, lifting, sitting, standing ,walking . Alleviating factors rest. Patient has tingling left arm. Coughing/sneezing +. Bowel/bladder -. Patient pain affects sleeping tales sleeping meds. Patient unable to lay on left side. Patient is unable to return to work. Patient pain affects QOL, function and ADLS . SOCAIL: diverced. 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 GAIT: reciprocal pattern guarded position. NEURO: denies paresthesia/tingling ,reflexes L3-4,L4-5,L5-S1 2/3. SYMTRICAL: align. MMT: GROSSLY 4-/5 quads/hams/hip /ankle. FLEXABILITY: hamstrings mod tight. LUMBAR ROM: flexion mod loss ,extension severe loss, side glides mod loss pain all planes - Special Tests L/S Slump test left side: Negative L/S Slump test right side: Negative L/S Left Straight Leg Raise: Positive L/S Right Straight Leg Raise: Positive Lumbar Standing: Flexion - Mechanical Response: No effect Lumbar Standing: Flexion - Symptoms During Testing: Increases Lumbar Standing: Flexion - Symptoms After Testing: Worse Lumbar Standing: Extension - Mechanical Response: No effect Lumbar Standing: Extension - Symptoms During Testing: Increases Lumbar Standing: Extension - Symptoms After Testing: Worse Lumbar Standing: Right Side Glides - Mechanical Response: No effect Lumbar Standing: Right Side [place] - Symptoms During Testing: Increases Lumbar Standing: Right Side [place] - Symptoms After Testing: No worse Lumbar Standing: Left Side [place] - Mechanical Response: No effect Lumbar Standing: Left Side [place] - Symptoms After Testing: No worse Lumbar Lying: Flexion - Mechanical Response: No effect Lumbar Lying: Flexion - Symptoms During Testing: Increases Lumbar Lying: Flexion - Symptoms After Testing: Worse Comments:: unable - Balance/Special Test Scores Oswestry Low Back Score: 35 - Goals Goal 1:: I with HEP for lumbar spine Goal Time Frame: 4-6 Weeks Goal 2:: Patient to improve posture/body mechanics 80% to manage back back pain Goal Time Frame: 4-6 Weeks Goal 3:: Patient to demonstrate 50% improvement with decrease pain and improved function Goal Time Frame: 4-6 Weeks Goal 4:: Patient improve lumbar ROM for function of recovery to bend to put on shoes Goal Time Frame: 4-6 Weeks Goal 5:: Patient to improve back oswestry by 5 points to improve QOL and function. Goal Time Frame: 4-6 Weeks Goal 6:: Patient RTW with min limitations - Rehabilitation Potential Physical Therapy Diagnosis: This patient has lumbar pain and radicular symptoms with weakness ,highly irritable, pain with positing, motion testing impairs gait ,RTW and function thus benefit from skilled PT - Anticipated Interventions Patient/Client Instruction: Educate patient on: Condition, Plan of Care For the Purpose of:: To decrease pain, To increase ROM, To improve muscle performance and motor function, To improve ability to perform ADL's, To increase tolerance to activity/condition/position, To improve ability of physical actions for home/community/work/leisure, To improve health of tissue, To decrease soft tissue restriction, To increase flexibility/ROM, To prevent re-injury, To improve tolerance to ADL's Therapeutic Exercise to Include: Strength training, Balance training, Postural training, Flexibilty training, Active ROM, Dynamic Lumbar Stabilization For the Purpose of:: To decrease pain, To improve muscle performance and motor function, To improve ability to perform ADL's, To increase tolerance to activity/condition/position, To improve ability of physical actions for home/community/work/leisure, To improve health of tissue, To decrease soft tissue restriction, To increase flexibility/ROM, To improve tolerance to ADL's TENS: Yes IF ES: Yes Thermo therapy (hot pack): Yes Ultrasound (thermal/non thermal): Yes For the Purpose of:: To decrease pain, To decrease swelling/inflammation, To improve nutrient delivery to tissue, To increase oxygenation perfusion Thank you for the opportunity to evaluate your patient. For Medicare and Medicare HMO plans, please review the plan of care and approve it. It will need to be FAXED BACK to us at [phone] for Medicare purposes. For Medicare only, by signing this I certify the plan of care. Please let me know if there are questions or concerns regarding this plan of care. Physician Signature: Date:
--- NOTE | 2022-06-11 09:41 | HP.PT.NRP ---
AMNA RAMIREZ was seen in my office for initial evaluation on 12/19/21. The following Plan of Care was established for this patient: Initial Frequency: 2x /Week Initial Duration: 4 Weeks Patient/Client Instruction: Educate patient on: Condition, Plan of Care For the Purpose of:: To decrease pain, To increase ROM, To improve muscle performance and motor function, To improve ability to perform ADL's, To increase tolerance to activity/condition/position, To improve ability of physical actions for home/community/work/leisure, To improve health of tissue, To decrease soft tissue restriction, To increase flexibility/ROM, To prevent re-injury, To improve tolerance to ADL's Therapeutic Exercise to Include: Strength training, Balance training, Postural training, Flexibilty training, Active ROM, Dynamic Lumbar Stabilization For the Purpose of:: To decrease pain, To improve muscle performance and motor function, To improve ability to perform ADL's, To increase tolerance to activity/condition/position, To improve ability of physical actions for home/community/work/leisure, To improve health of tissue, To decrease soft tissue restriction, To increase flexibility/ROM, To improve tolerance to ADL's TENS: Yes IF ES: Yes Thermo therapy (hot pack): Yes Ultrasound (thermal/non thermal): Yes For the Purpose of:: To decrease pain, To decrease swelling/inflammation, To improve nutrient delivery to tissue, To increase oxygenation perfusion This patient was last seen in our office . Pertinent comments regarding their Physical therapy will appear below: Patient seen for PT for lumbar pain doing well with progression of DLS and elly ex's thus d/c At this point I will be discontinuing this patient from physical therapy. I would be happy to see this patient again in the future if found appropriate by the physician. Thank you! Prosper Wagoner, PT, Cert MDT, OCS Balance/Gait/Functional tests - Balance/Special Test Scores Oswestry Low Back Score: 0
== END 2022-02-06 19:00 | disposition home or self-care (01) ==
LOC: PT 12:00
PROVIDERS: PCP Family Medicine; Visit Provider Family Medicine
DX: M54.9 Dorsalgia, unspecified (principal)
CPT/HCPCS: 97014; 97110; 97162; G0283

== ENCOUNTER → 2022-12-22 | Outpatient (CLI) | payer OTHER, SELFPAY ==
--- NOTE | 2022-12-22 13:10 | RAD_ITS ---
STUDY: X-RAY - CERVICAL SPINE REASON FOR EXAM: Female, 42 years old. Pain following a fall. TECHNIQUE: 3 view(s) of the cervical spine were obtained. COMPARISON: None FINDINGS: Normal anterior atlantoaxial articulation. Normal odontoid process. There is straightening of the normal cervical lordosis. Spondylosis and disc space narrowing at the C4-C5 and C5-C6 levels. Normal visualized intervertebral neuroforamina. The soft tissue structures are unremarkable. RAD/Cerv Spine 2 or 3 Views IMPRESSION: Straightening of the normal cervical lordosis. Anterior spondylosis and disc space narrowing at the C4-C5 and C5-C6 levels. Electronically Signed: Franklin Cuadra MD at 15:30 EDT ,
== END | disposition home or self-care (01) ==
LOC: RAD 13:02
PROVIDERS: PCP Family Medicine; Visit Provider Anesthesiology Pain Medicine
DX: M47.812 Spondylosis without myelopathy or radiculopathy, cervical region (principal)
CPT/HCPCS: 72040